=== PATIENT | male | born 1980 | race Hispanic/Latino ===

== ENCOUNTER 2020-01-21 09:39 | Emergency (ER) | payer BC, SELFPAY ==
[2020-01-21] VITALS (10 sets, daily range): BP systolic 107–155; BP diastolic 78–96; PULSE 72–102; RESP 9–26; TEMP 36.4–37.2; O2SAT 97–100
--- NOTE | ~2020-01-21 | XR_ITS ---
EXAMINATION: XR chest 2V 01/21/2020 10:25 INDICATION: Left-sided chest pain PROCEDURE: 2 view chest COMPARISON: 03/03/2017 FINDINGS: The lungs are clear. The cardiomediastinal silhouette is within normal limits. There are no pleural effusions. There is no pneumothorax suspected. IMPRESSION: 1: NO ACUTE CARDIOPULMONARY DISEASE. Reviewed, dictated and finalized at location A.
--- NOTE | 2020-01-21 10:02 | ECG_ITS ---
Measurements Intervals [place] Rate: 84 P: 56 OK: 176 QRS: 40 QRSD: 91 T: 34 QT: 336 QTc: 398 Interpretive Statements SINUS RHYTHM NORMAL ECG Electronically Signed On 01-21-2020 20:02:52 CDT by Thong Quiroga D.O.
[2020-01-21] MEDS: ASPIRIN 81 MG CHEWABLE TABLET 324 MG PO (10:10)
[2020-01-21 10:19] LABS: Basophils Percent Auto 0.3 % (0.2-1.2); Eosinophils Absolute Auto 0.3 K/mm3 (0-0.3); Hemoglobin 15.6 g/dL (14.0-18.0); Immature Granulocyte Absolute 0.03 K/mm3 (0.00-0.031); Immature Granulocyte Percent A 0.3 % (0-0.5); Lymphocytes Absolute Auto 2.05 K/mm3 (0.9-3.2); Mean Corpuscular HGB Conc 34.7 g/dl (32-36); Mean Corpuscular Hemoglobin 29.2 pg (26-34); Mean Corpuscular Volume 84.3 fl (80-100); Mean Platelet Volume 9.9 fl (7.4-10.4); Monocytes Absolute Auto 0.8 K/mm3 (0.1-0.6); Monocytes Percent Auto 7.7 % (2.6-8.5); Neutrophils Percent Auto 68.7 % (45.5-73.1); Platelet Count Result 370 k/mm3 (150-375); Red Blood Count 5.34 M/mm3 (4.6-6.20); Red Cell Distribution Width 12.9 % (11.5-14.5); White Blood Count 10.2 K/mm3 (4.5-10.0)
[2020-01-21 10:30] LABS: INR 0.9; Prothrombin Time 12.3 Seconds (11.1-14.7)
[2020-01-21 10:31] LABS: Partial Thromboplastin Time 30.9 SECONDS (22.3-36.8)
[2020-01-21 10:32] LABS: Anion Gap 7 mmol/L (8-16); Blood Urea Nitrogen 15 mg/dL (9-20); Calcium 9.3 mg/dL (8.4-10.2); Carbon Dioxide 25 mmol/L (22-30); Chloride 105 mmol/L (98-107); Estimated CRCL calculation 90 ml/min; Estimated Glomerular Filt Rate > 60; Glucose 101 mg/dL (75-110); Potassium 4.1 mmol/L (3.4-5.0); Sodium 137 mmol/L (137-145)
[2020-01-21 10:43] LABS: Troponin I < 0.012 ng/mL (0.000-0.034)
[2020-01-21 11:39] LABS: Add Urine Microscopic? NO; Appearance Urine Clear (Clear); Bilirubin Urine Negative (Negative); Blood Urine Negative (Negative); Color Urine Yellow (Yellow); Glucose Urine UA Negative (Negative); Ketones Urine Negative (Negative); Leukocyte Esterase Ur Negative LEU/UL (Negative); Nitrate Urine Negative (Negative); Protein Urine Negative (Negative); Specific Grav Ur 1.014 (1.001-1.035); Urobilinogen Urine Negative mg/dL (<2.0)
[2020-01-21 11:50] LABS: Amphetamine Screen Urine Negative (Negative); Barbiturate Screen Urine Negative (Negative); Benzodiazepines Screen Urine Negative (Negative); Cannabinoid Screen Urine Positive (Negative); Cocaine Screen Urine Negative (Negative); Methadone Screen Urine Negative (Negative); Opiate Screen Urine Negative (Negative); Phencyclidine Screen Urine Negative (Negative)
[2020-01-21 13:50] LABS: Troponin I < 0.012 ng/mL (0.000-0.034)
--- NOTE | 2020-01-21 14:12 | ED.CHESTPAIN ---
HPI - Chest Pain General Chief Complaint: Chest Pain <Miguel Varner PA-C - Last Filed: 01/21/20 22:11> Stated Complaint: chest pain x 2 months <Miguel Varner PA-C - Last Filed: 01/21/20 22:11> Time Seen by Provider: 01/21/20 10:11 <Miguel Varner PA-C - Last Filed: 01/21/20 22:11> Source: patient <BRADY Polo Last Filed: 01/21/20 22:11> Mode of arrival: ambulatory <BRADY Polo Last Filed: 01/21/20 22:11> Limitations: no limitations <Miguel Varner PA-C - Last Filed: 01/21/20 22:11> History of Present Illness HPI narrative: Patient presents with chief complaint of episodic chest pain that has been occurring for the past 2 to 3 months. Patient states that he does not have chest pain currently but has the data off so he figured that he would have it checked out and when he called his primary care's office they told him to come to the emergency department. Patient states that occasionally he feels a single needle stab-like sensation to his left chest and at times he feels like that there is a cord pulling like sensation that goes across his chest down to his left hand. Patient denies fever, chills, nausea, vomiting, diaphoresis, shortness of breath or continuous chest pain. patient denies any radiation of pain into his jaw into his left arm. Patient denies history of prior heart attacks. Patient denies history of hypertension, smoking, drug use, immediate family history of MIs. Patient states that he takes a baby aspirin daily because he thought it would be a good idea for the past 2 weeks. Patient denies changes or increase in caffeine use, supplements, new medications, stopping medication or any other known causes of his symptoms. Patient states that his symptoms normally present when he lays in the bed on his left side and does not worsen or brought on by exertion or other activity. <Miguel Varner PA-C - Last Filed: 01/21/20 22:11> Related Data Home Medications: Home Medications Medication Instructions Recorded Confirmed No Home Medications 01/21/20 01/21/20 <Miguel Varner PA-C - Last Filed: 01/21/20 22:11> Allergies/Adverse Reactions: Allergies Allergy/AdvReac Type Severity Reaction Status Date / Time No Known Allergies Allergy Verified 01/21/20 09:50 <Miguel Varner PA-C - Last Filed: 01/21/20 22:11> Review of Systems Review of Systems: Narrative: CONSTITUTIONAL: Denies fever, chills, or sweats. EYES: Denies visual changes, redness, or discharge. ENT: Denies rhinorrhea, congestion, sore throat, or otalgia. CARDIOVASCULAR: reports past intermittent chest pain Denies current chest pain, palpitations, or edema. RESPIRATORY: Denies cough or dyspnea. GASTROINTESTINAL: Denies abdominal pain, nausea, vomiting, or diarrhea. GENITOURINARY: Denies dysuria or hematuria. SKIN: Denies rash or itching. MUSCULOSKELETAL: Denies back pain, myalgia, or joint pain NEUROLOGIC: Denies headache, numbness, dizziness, or weakness. PSYCHIATRIC: Denies anxiety or depression. <Miguel Varner PA-C - Last Filed: 01/21/20 22:11> Exam Narrative: Exam Narrative: GENERAL: Well-appearing, well-nourished. Patient smiling and talking normally without any signs of discomfort or distress. HEAD: Normocephalic, atraumatic. EYES: PERRLA and EOMI. ENT: Nares clear, no rhinorrhea or epistaxis. Mucous membranes moist. Oropharynx without tonsillar hypertrophy exudate or other lesions. Bilateral TMs pearly fairchild nonbulging NECK: Supple. No adenopathy or masses. No vertebral tenderness or loss of ROM. CHEST: Clear to auscultation. No respiratory distress. No wheezes rales or rhonchi HEART: Regular rate and rhythm. Normal peripheral pulses. No pain with palpation of chest. ABDOMEN: Soft, nontender, nondistended, normal active bowel sounds. No bruises noted. EXTREMITIES: No acute changes in ROM. No edema. SKIN: Warm, dry, no rash. NEURO: No focal deficits. Alert an
== END 2020-01-21 14:59 | disposition home or self-care (01) ==
PROVIDERS: Physician Assistant; Emergency Provider Emergency Medicine
DX: R07.9 Chest pain, unspecified (principal)
CPT/HCPCS: 36415; 71046; 80048; 80307; 81003; 84484; 85025; 85610; 85730; 93005; 99284; A9270